=== PATIENT | male | born 1950 | race Asian ===

== ENCOUNTER 2017-02-13 07:28 | Day surgery (SDC) | payer OTHER ==
[2017-02-11 14:40] VITALS: BMI 30.7
[2017-02-13] MEDS ORDERED: PROPOFOL 20 ML ONE ×2 (07:41)
[2017-02-13 08:36] VITALS: TEMP 98.6
[2017-02-13 10:17] VITALS: BP 137/76; PULSE 62
--- NOTE | 2017-02-14 10:43 | PATH ---
Surgical Pathology Report Patient Name: SANTOS JIMENEZ [facility]. Rec. #: [id number] /Age/Gender: 1950 (Age: 66) / M Account: [id number] Location: [facility]-ENDOSCOPY Taken: 02/13/2017 Received: 02/13/2017 Reported: 02/14/2017 Physicians: Handy Vazquez M.D. Specimen(s) Received A: BX HEPATIC FLEXURE B: BX RECTUM Clinical History History of polyps Polyps Final Diagnosis A. COLON, HEPATIC FLEXURE, BIOPSY: TUBULAR ADENOMA. B. COLON, RECTUM, BIOPSY: TUBULAR ADENOMA. Electronically Signed Hayden Ramirez M.D. Gross Description A. Received in formalin, labeled "hepatic flexure" are 2 antonio, irregular portions of soft tissue averaging 0.1 cm. in greatest dimension. The specimens are submitted in toto in one cassette. B. Received in formalin, labeled "rectum" is a antonio, irregular portion of soft tissue measuring 0.2 cm. in greatest dimension. The specimen is submitted in toto in one cassette. 02/13/2017 saudi02/13/2017
== END 2017-02-13 10:38 | disposition home or self-care (01) ==
LOC: FASU-ENDO 07:28
PROVIDERS: ATTEND Internal Medicine Gastroenterology
PROC: 0DBL8ZX Excision of Transverse Colon, Via Natural or Artificial Opening Endoscopic, Diagnostic (ICD-10-PCS; principal; 2017-02-13 09:16)
PROC: 0DBP8ZX Excision of Rectum, Via Natural or Artificial Opening Endoscopic, Diagnostic (ICD-10-PCS; 2017-02-13 09:16)
DX: Z86.010 Personal history of colon polyps (principal); D12.3 Benign neoplasm of transverse colon; D12.8 Benign neoplasm of rectum
CPT/HCPCS: 88305-TC

== ENCOUNTER 2019-12-18 15:07 | Emergency (ER) | payer OTHER ==
[2019-12-18 15:36] VITALS: BP 151/95; PULSE 65; TEMP 98; BMI 29.9
--- NOTE | 2019-12-18 15:59 | PDOC ---
Documentation entered by Domenica Looney SCRIBE, acting as scribe for Terra Ferrari MD. Terra Ferrari MD: This documentation has been prepared by the Aayush rondon Brenda, SCRIBE, under my direction and personally reviewed by me in its entirety. I confirm that the documentation accurately reflects all work, treatment, procedures, and medical decision making performed by me. History of Present Illness - General Chief Complaint: Pain Stated Complaint: left leg pain History Source: Patient Exam Limitations: No Limitations - History of Present Illness Initial Comments: 12/18/19 15:54 The patient is a 69 year old male, with a significant PMH of HLD, Hypothyroidism , DM and Afib (on blood thinners) who presents to the emergency department with lower back pain that radiates down his left leg. Patient states that he was putting cream on his legs, at which time when he tried to remove his legs from the tub, he felt a sudden onset of sharp excruciating lower back pain that traveled down to his left leg, and tingled his toes. Patient was sent to the ED after being seen at an urgent care. The patient denies chest pain, shortness of breath, headache and dizziness. Denies fever, chills, nausea, vomiting, diarrhea and constipation. Denies any urinary symptoms. Allergies: NKA Social history: No reported hx of tobacco use, alcohol use or illicit drug use. Past History - Past Medical History Allergies/Adverse Reactions: Allergies Allergy/AdvReac Type Severity Reaction Status Date / Time prochlorperazine edisylate Allergy Severe Difficulty Verified 12/18/19 15:09 [From Compazine] Breathing prochlorperazine maleate Allergy Severe Difficulty Verified 12/18/19 15:09 [From Compazine] Breathing Home Medications: Ambulatory Orders Atorvastatin Ca [Lipitor] 80 mg PO DAILY 04/16/12 Levothyroxine [Synthroid] 100 mcg PO DAILY 04/16/12 Metformin HCl [Glucophage] 1,000 mg PO TID 02/11/17 Metoprolol Tartrate 50 mg PO BID 02/11/17 Rivaroxaban [Xarelto -] 20 mg PO DAILY 02/11/17 Methocarbamol [Robaxin -] 500 mg PO BID #14 tablet 12/18/19 Oxycodone HCl/Acetaminophen [Percocet 5-325 mg Tablet] 1 tab PO Q6H PRN #12 tablet MDD 4 tabs 12/18/19 Valsartan 160 mg PO DAILY 12/18/19 Anemia: No Asthma: No Cancer: No Cardiac Disorders: Yes (AFIB) CVA: No COPD: No CHF: No Dementia: No Diabetes: Yes GI Disorders: Yes (COLONIC POLYPS) Disorders: Yes (OVERACTIVE BLADDER) HTN: Yes Hypercholesterolemia: Yes Liver Disease: No Seizures: No Thyroid Disease: Yes (HYPOTHYROIDISM) - Surgical History Abdominal Surgery: No Appendectomy: No Cardiac Surgery: No Cholecystectomy: No Lung Surgery: No Neurologic Surgery: No Orthopedic Surgery: Yes (RIGHT WRIST SURGERY) - Psycho Social/Smoking Cessation Hx Smoking History: Never smoked Have you smoked in the past 12 months: No Hx Alcohol Use: No Drug/Substance Use Hx: No Substance Use Type: None Hx Substance Use Treatment: No Review of Systems - Review of Systems Able to Perform ROS?: Yes Comments:: 12/18/19 15:55 GENERAL/CONSTITUTIONAL: No fever or chills. No weakness. HEAD, EYES, EARS, NOSE AND THROAT: No change in vision. No ear pain or discharge. No sore throat. CARDIOVASCULAR: No chest pain or shortness of breath. RESPIRATORY: No cough, wheezing, or hemoptysis. GASTROINTESTINAL: No nausea, vomiting, diarrhea or constipation. GENITOURINARY: No dysuria, frequency, or change in urination. MUSCULOSKELETAL: (+) Back pain (+) Left leg pain. No joint or muscle swelling . No neck pain. SKIN: No rash NEUROLOGIC: No headache, vertigo, loss of consciousness, or change in strength/ sensation. ENDOCRINE: No increased thirst. No abnormal weight change. HEMATOLOGIC/LYMPHATIC: No anemia, easy bleeding, or history of blood clots. ALLERGIC/IMMUNOLOGIC: No hives or skin allergy. *Physical Exam - Vital Signs Last Vital Signs Temp Pulse Resp BP Pulse Ox 98.0 F 65 20 151/95 99 12/18/19 15:08 12/18/19 15:08 12/18/19 15:08 12/18/19 15:08 12/18/19 15:08 - Physical Exam GENERAL: Awake, alert, and fully oriented, in no acute distress HEAD: No signs of trauma EYES: PERRLA, EOMI, sclera anicteric, conjunctiva clear EXTREMITIES: Normal range of motion, no edema. No clubbing or cyanosis. No cords, erythema, or tenderness NEUROLOGICAL: Cranial nerves II through XII grossly intact. Normal speech, normal gait. Motor and sensation intact SKIN: Warm, dry, normal turgor, no rashes or lesions noted. SPINE: No midline tenderness, no stepoffs. ED Treatment Course - RADIOLOGY Radiology Studies Ordered: Category Date Time Status SPINE-LUMBAR SACRAL [RAD] Stat Radiology 12/18/19 15:49 Ordered Medical Decision Making - Medical Decision Making 12/18/19 15:53 Pain is likely sciatica. Will obtain lumbar spine XR, as the urgent care x- rayed his hip and pelvis. Patient is driving home, will take pain medication there, as it will cause drowsiness. Discharge - Discharge Information Problems reviewed: Yes Clinical Impression/Diagnosis: Sciatica Qualifiers: Laterality: left Qualified Code(s): M54.32 - Sciatica, left side Condition: Stable Disposition: HOME - Admission No - Additional Discharge Information Prescriptions: Methocarbamol [Robaxin -] 500 mg PO BID #14 tablet Oxycodone HCl/Acetaminophen [Percocet 5-325 mg Tablet] 1 tab PO Q6H PRN #12 tablet MDD 4 tabs PRN Reason: Severe Pain - Follow up/Referral - Patient Discharge Instructions Patient Printed Discharge Instructions: DI for Back Pain With Sciatica - Post Discharge Activity
== END 2019-12-18 17:07 | disposition home or self-care (01) ==
LOC: FER 15:07
DX: M54.32 Sciatica, left side (principal); Z88.8 Allergy status to other drugs, medicaments and biological substances; E03.9 Hypothyroidism, unspecified; I10 Essential (primary) hypertension; E78.00 Pure hypercholesterolemia, unspecified; K92.9 Disease of digestive system, unspecified; I48.91 Unspecified atrial fibrillation; E11.9 Type 2 diabetes mellitus without complications
CPT/HCPCS: 72100-TC-FY; 99283-25